=== PATIENT | male | born 1940 | race Caucasian/White ===

== ENCOUNTER 2016-12-29 08:58 | Emergency (ER) | payer OTHER ==
[2016-12-29 09:13] VITALS: BP 142/86; PULSE 65; TEMP 97.8; BMI 34.7
[2016-12-29] MEDS ORDERED: KETOROLAC TROMETHAMINE 30 MG/1 ML VIAL IM ONE (10:01)
[2016-12-29] MEDS ORDERED: diazePAM 2 MG TABLET PO ONE (10:01)
[2016-12-29] MEDS ORDERED: diazePAM 2 MG TABLET ONE (10:03)
[2016-12-29] MEDS ORDERED: KETOROLAC TROMETHAMINE 30 MG/1 ML VIAL ONE (10:03)
--- NOTE | 2016-12-29 10:03 | PDOC ---
History of Present Illness - General Chief Complaint: Back Pain Stated Complaint: LOWER BACK PAIN - History of Present Illness Initial Comments: 12/29/16 10:02 Chief Complaint: lower back pain History of Present Illness: 76-year-old male with history of CAD status post 3 stents, hypertension, hyperlipidemia presents to ED with back pain. Patient states that 3 days ago he was shoveling snow when he started feeling back pain. The back pain has worsened over the last 3 days and today he felt like he couldn 't even get dressed because his lower back pain was so bad. Patient denies any trauma or injury, bowel or bladder dysfunction, loss of sensation, numbness or tingling to lower extremities, any weakness, chest pain, shortness of breath, fever, or chills. PMH: no history of cancer Meds: Lipitor, metoprolol, Plavix Allergies: None PSH: no recent epidural placement or other surgery Soc hx: Denies alcohol, tobacco, drug use. Review of Systems: GENERAL/CONSTITUTIONAL: No fever or chills. No weakness. No weight change. HEAD, EYES, EARS, NOSE AND THROAT: No change in vision. No ear pain or discharge. No sore throat. CARDIOVASCULAR: No chest pain or shortness of breath. RESPIRATORY: No cough, wheezing, or hemoptysis. GASTROINTESTINAL: No nausea, vomiting, diarrhea or constipation. No rectal bleeding. GENITOURINARY: No dysuria, frequency, or change in urination. MUSCULOSKELETAL: No bladder or bowel dysfunction. No weakness, difficulty walking. No joint or muscle swelling or pain. No neck or back pain. SKIN AND BREASTS: No rash or easy bruising. NEUROLOGIC: No headache, vertigo, loss of consciousness, or loss of sensation. PSYCHIATRIC: No depression or anxiety. ENDOCRINE: No increased thirst. No abnormal weight change. HEMATOLOGIC/LYMPHATIC: No anemia, easy bleeding, or history of blood clots. ALLERGIC/IMMUNOLOGIC: No hives or skin allergy. No latex allergy. General Appearance: positive: Appropriately Dressed. negative: Apparent Distress, no intoxication HEENT: positive: EOMI, HERMELINDA, Normal ENT Inspection, Normal Voice, TMs Normal, Pharynx Normal. No Palor of Conjunctivae, Photophobia, Scleral Icterus (R), Scleral Icterus (L) Neck: positive: Trachea midline, Normal Thyroid, Supple. No tenderness, rigidity, Carotid bruit, Stridor, Lymphadenopathy (R), Lymphadenopathy (L), Thyromegaly] Respiratory/Chest: positive: Lungs Clear, Normal Breath Sounds. No Chest Tenderness, Respiratory Distress, Accessory Muscle Use, Labored Respiration, Crackles, Rales, Rhonchi, Stridor, Wheezing, Dullness Cardiovascular: Regular Rhythm, Regular Rate, S1, S2. No JVD, Murmur, Bradycardia, Tachycardia Vascular Pulses: Dorsalis-Pedis (R): 2+, Doralis-Pedis (L): 2+] Gastrointestinal/Abdominal: positive for Normal Bowel Sounds, Flat, Soft. No Tenderness, Organomegaly, Pulsatile Mass, Distention, Guarding, Rebound, Hernia , Hepatomegaly, Spleenomegaly] Lymphatic: negative: Adenopathy, Tenderness] Musculoskeletal: Full ROM in all extremities. Normal capillary refill, distal pulses equal bilaterally. Stable pelvis. No tenderness, swelling, erythema, or deformity. No midline point tenderness to cervical, thoracic, lumbar spine. Negative straight leg test. Integumentary: Normal color, dry, warm. No cyanosis, erythema, jaundice or rash Neurologic: A&Ox3, follow commands, respond appropriately CN2-12: conjugate gaze, pupil round, equal and reactive to light. Visual field full to confrontation. EOMI without nystagmus, pursuit is smooth without saccade. Facial sensation and muscle activation intact bilaterally. Hearing intact bilaterally. Palate elevate symmetrically. Shoulder shrug and neck turn full strength. Tongue protrude midline. Motor: UE and LE strength 5/5 throughout bilaterally. Muscle tone and bulk normal. Cerebellar: Rapid-alternating movement with regular rhythm without bradykinesia. [id number] and [id number] intact bilaterally without dysmetria or overshoot. Gait narrow based. No shuffling. Full hip flexion and knee flexion. Negative Romberg No involuntary movement noted. No pronator drift. No clonus. 12/29/16 10:09 12/29/16 13:26 Past History - Past Medical History Allergies/Adverse Reactions: Allergies Allergy/AdvReac Type Severity Reaction Status Date / Time No Known Allergies Allergy Verified 12/29/16 09:07 Home Medications: Ambulatory Orders Cyclobenzaprine HCl [Flexeril -] 5 mg PO HS #7 tablet 12/29/16 Naproxen 250 mg PO BID #10 tablet 12/29/16 Cardiac Disorders: Yes (STENT PLACEMENT) HTN: Yes Hypercholesterolemia: Yes - Surgical History Cardiac Surgery: Yes (STENTS) - Psycho/Social/Smoking Cessation Hx Suicidal Ideation: No Smoking History: Never smoked *Physical Exam - Vital Signs Last Vital Signs Temp Pulse Resp BP Pulse Ox 97.8 F 65 17 142/86 95 12/29/16 09:07 12/29/16 09:07 12/29/16 09:07 12/29/16 09:07 12/29/16 09:07 Medical Decision Making - Medical Decision Making 12/29/16 13:26 76-year-old male with history of CAD status post 3 stents, hypertension, hyperlipidemia presents to ED with back pain. -2 mg Valium -30 mg Toradol IM Patient states back pain is improved but he "still feels it." Discussed with patient that he may need an MRI for further evaluation of his sudden back pain. DDx includes cauda equina, sciatica, herniated disc, muscle strain/spasm. At this time it appears that this is a muscle spasm secondary to poor body mechanics from shoveling snow. -5 mg cyclobenzaprine po hs -250 mg naproxen bid x 7 days Advised patient to follow up with orthopedics within the next week. Advised patient to take medications as prescribed. Advised patient of signs and symptoms for return to ER; patient verbalized understanding and agrees to plan. *DC/Admit/Observation/Transfer Diagnosis at time of Disposition: Lower back pain Qualifiers: Chronicity: acute Back pain laterality: bilateral Sciatica presence: without sciatica Qualified Code(s): M54.5 - Low back pain - Discharge Dispostion Disposition: HOME Condition at time of disposition: Stable Admit: No - Prescriptions Prescriptions: Cyclobenzaprine HCl [Flexeril -] 5 mg PO HS #7 tablet Naproxen 250 mg PO BID #10 tablet - Referrals Referrals: Cora Garg MD [Primary Care Provider] - Alek Goldberg MD [Staff Physician] - - Patient Instructions Printed Discharge Instructions: DI for Back Strain or Sprain Additional Instructions: Please take medication as prescribed and follow-up with orthopedist next week. If he developed severe pain radiating down to his leg, weakness to one side, shortness of breath, chest pain, numbness or tingling to her legs, loss of bowel or bladder function, loss of sensation, or any other new or worsening symptoms please return to the ER.
== END 2016-12-29 10:47 | disposition home or self-care (01) ==
LOC: JERFT 08:58
PROC: 3E0233Z Introduction of Anti-inflammatory into Muscle, Percutaneous Approach (ICD-10-PCS; principal; 2016-12-29)
DX: I10 Essential (primary) hypertension (principal); E78.00 Pure hypercholesterolemia, unspecified; Z95.5 Presence of coronary angioplasty implant and graft
CPT/HCPCS: 96372; 99281-25

== ENCOUNTER 2021-12-09 12:17 | Inpatient (IN) | payer OTHER ==
[2021-12-09] MEDS ORDERED: DEXAMETHASONE SOD PHOSPHATE 10 MG/1 ML VIAL IVPUSH ONE (13:32)
[2021-12-09] MEDS ORDERED: SODIUM CHLORIDE 0.9% 500 ML INFUS.BAG IV ONE (13:41)
[2021-12-09] MEDS ORDERED: DEXAMETHASONE SOD PHOSPHATE 4 MG/1 ML VIAL ONE (13:42)
[2021-12-09] MEDS ORDERED: METOPROLOL TARTRATE 5 MG/5 ML VIAL IVPUSH ONE (13:49)
[2021-12-09] MEDS ORDERED: METOPROLOL TARTRATE 5 MG/5 ML VIAL ONE ×2 (13:56→18:33)
[2021-12-09] MEDS ORDERED: metoPROLOL SUCCINATE 25 MG TAB.SR.24H (FP) PO ONE (14:10)
[2021-12-09] MEDS ORDERED: metoPROLOL SUCCINATE 25 MG TAB.SR.24H (FP) ONE (14:16)
[2021-12-09 15:02] LABS: HEMATOCRIT 42.2 % (35.4-49); HEMOGLOBIN 15.5 GM/dL (11.7-16.9); MCH 33.3 pg (25.7-33.7); MCHC 36.6 g/dl (32.0-35.9); MEAN CELL VOLUME 90.9 fl (80-96); MEAN PLT VOLUME 8.9 fl (7.5-11.1); PLATELET COUNT 409 10^3/uL (134-434); RBC 4.64 M/mm3 (4.00-5.60); RDW 15.9 % (11.9-15.9); WHITE BLOOD COUNT 7.6 K/mm3 (4.0-10.0)
[2021-12-09 15:09] LABS: VENOUS BASE EXCESS -7.9 mmol/L (-2-2); VENOUS O2 SATURATION 62.7 % (70-80); VENOUS PCO2 33.9 mmHg (38-52); VENOUS PH 7.317 (7.310-7.410)
[2021-12-09 15:10] LABS: INR 1.48 (0.83-1.09); PROTHROMBIN TIME (PATIENT) 17.1 SEC (9.7-13.0)
[2021-12-09 15:30] LABS: CHLORIDE 105 mmol/L (98-107); SODIUM 138 mmol/L (136-145)
[2021-12-09 15:31] LABS: CALCIUM 8.8 mg/dL (8.5-10.1)
[2021-12-09 15:32] LABS: ALBUMIN 2.8 g/dl (3.4-5.0); ANION GAP 13 MMOL/L (8-16); BLOOD UREA NITROGEN 76.4 mg/dL (7-18); CO2 20 mmol/L (21-32); GLUCOSE,RANDOM 145 mg/dL (74-106); MAGNESIUM 3.3 mg/dL (1.8-2.4)
[2021-12-09 15:35] LABS: BILIRUBIN,DIRECT 1.8 mg/dL (0.0-0.2); CREATININE 2.1 mg/dL (0.55-1.3); SGOT/AST 75 U/L (15-37); SGPT/ALT 85 U/L (13-61)
[2021-12-09 15:36] LABS: LDH 458 U/L (87-246); TOT PROT 7.7 g/dl (6.4-8.2)
[2021-12-09 15:37] LABS: BILIRUBIN,TOTAL 2.7 mg/dL (0.2-1)
[2021-12-09 15:38] LABS: ALK PHOS 313 U/L (45-117)
[2021-12-09 15:41] LABS: ANISOCYTOSIS 0; HELMET CELLS 0; HOWELL-JOLLY BODIES 0; MACROCYTOSIS 0; OVALOCYTE 0; PLATELET ESTIMATE NORMAL; ROULEAU 0; SICKELED CELLS 0; TARGET CELLS 0; TEAR DROP CELLS 0; TOXIC GRANULATION 0
[2021-12-09 16:32] LABS: LACTIC ACID 2.7 mmol/L (0.4-2.0)
[2021-12-09] MEDS ORDERED: AZITHROMYCIN IVPB 500 MG in DEXTROSE 5%-WATER - 250 ML IVPB ONE (16:44)
[2021-12-09] MEDS ORDERED: CEFTRIAXONE 1,000 MG in DEXTROSE 5%-WATER - 50 ML IVPB ONE (16:44)
[2021-12-09] MEDS ORDERED: AZITHROMYCIN IVPB 500 MG/250 ML BAG IVPB ONE (17:05)
[2021-12-09] MEDS ORDERED: CEFTRIAXONE 1 GM/50 ML BAG ONE (17:05)
[2021-12-09] MEDS ORDERED: SODIUM CHLORIDE 1,000 ML IV SCH ×2 (18:00→18:43)
[2021-12-09] MEDS ORDERED: METOPROLOL TARTRATE 5 MG/5 ML VIAL IVPUSH PRN (18:02)
[2021-12-09] MEDS ORDERED: GABAPENTIN 100 MG CAPSULE ONE (21:04)
[2021-12-09] MEDS ORDERED: APIXABAN 2.5 MG TABLET ONE (21:04)
[2021-12-09] MEDS ORDERED: CYCLOBENZAPRINE HCL 10 MG TABLET (FP) ONE (21:04)
[2021-12-09] MEDS: CYCLOBENZAPRINE HCL 5 MG TABLET PO SCH (21:24)
[2021-12-09] MEDS: APIXABAN 2.5 MG TABLET PO SCH (21:25)
[2021-12-09] MEDS: GABAPENTIN 100 MG CAPSULE PO SCH (21:25)
[2021-12-09] MEDS ORDERED: APIXABAN 5 MG TABLET PO SCH (22:00)
[2021-12-09 22:07] LABS: LACTIC ACID 2.7 mmol/L (0.4-2.0)
[2021-12-10] MEDS ORDERED: GABAPENTIN 100 MG CAPSULE ONE ×3 (05:52→22:15)
[2021-12-10] MEDS: GABAPENTIN 100 MG CAPSULE PO SCH ×3 (06:06→22:34)
[2021-12-10 06:37] LABS: BASO % 0.5 % (0-2.0); HEMATOCRIT 40.2 % (35.4-49); HEMOGLOBIN 14.1 GM/dL (11.7-16.9); LYMPH % 7.9 % (8-40); MEAN CELL VOLUME 94.5 fl (80-96); MEAN PLT VOLUME 8.6 fl (7.5-11.1); MONO % 4.7 % (3.8-10.2); NEUT % 86.9 % (42.8-82.8); PLATELET COUNT 410 10^3/uL (134-434); RBC 4.25 M/mm3 (4.00-5.60); RDW 15.9 % (11.9-15.9); WHITE BLOOD COUNT 5.9 K/mm3 (4.0-10.0)
[2021-12-10 06:51] LABS: MAGNESIUM 3.7 mg/dL (1.8-2.4)
[2021-12-10 06:53] LABS: ALBUMIN 2.5 g/dl (3.4-5.0); BLOOD UREA NITROGEN 72.1 mg/dL (7-18)
[2021-12-10 06:54] LABS: CREATININE 1.7 mg/dL (0.55-1.3)
[2021-12-10 06:56] LABS: TOT PROT 7.1 g/dl (6.4-8.2)
[2021-12-10 06:58] LABS: BILIRUBIN,TOTAL 1.7 mg/dL (0.2-1)
[2021-12-10] MEDS ORDERED: APIXABAN 2.5 MG TABLET ONE ×2 (08:22→22:14)
[2021-12-10] MEDS: APIXABAN 2.5 MG TABLET PO SCH ×2 (09:38→22:33)
[2021-12-10] MEDS ORDERED: SODIUM ZIRCONIUM CYCLOSILICATE (LOKELMA) 5 GM PACKET PO ONE (09:54)
[2021-12-10] MEDS ORDERED: SODIUM ZIRCONIUM CYCLOSILICATE (LOKELMA) 5 GM PACKET ONE (10:09)
[2021-12-10 12:04] LABS: LACTIC ACID 2.2 mmol/L (0.4-2.0)
[2021-12-10] MEDS ORDERED: FUROSEMIDE 40 MG/4 ML INJECTABLE VIAL IVPUSH ONE (14:42)
[2021-12-10] MEDS ORDERED: SODIUM CHLORIDE 0.45% 1,000 ML IV SCH (14:45)
[2021-12-10] MEDS ORDERED: FUROSEMIDE 40 MG/4 ML INJECTABLE VIAL ONE (15:19)
[2021-12-10] MEDS ORDERED: CEFTRIAXONE 1 GM/50 ML BAG ONE (19:39)
[2021-12-10] MEDS: CEFTRIAXONE 1 GM in DEXTROSE 5%-WATER - 50 ML IVPB SCH (19:45)
[2021-12-10] MEDS ORDERED: DOXYCYCLINE HYCLATE 100 MG VIAL ONE (22:15)
[2021-12-10] MEDS: CYCLOBENZAPRINE HCL 5 MG TABLET PO SCH (22:33)
[2021-12-10] MEDS: ROSUVASTATIN CA 10 MG TABLET PO SCH (22:33)
[2021-12-10] MEDS: DOXYCYCLINE INJECTION 100 MG in DEXTROSE 5%-WATER 100 ML IVPB SCH (22:34)
[2021-12-11 04:57] VITALS: BMI 29.5
[2021-12-11] MEDS: GABAPENTIN 100 MG CAPSULE PO SCH ×3 (06:52→22:01)
[2021-12-11 10:08] LABS: HEMATOCRIT 39.9 % (35.4-49); HEMOGLOBIN 13.7 GM/dL (11.7-16.9); MCH 30.5 pg (25.7-33.7); MCHC 34.2 g/dl (32.0-35.9); MEAN CELL VOLUME 89.2 fl (80-96); MEAN PLT VOLUME 8.6 fl (7.5-11.1); PLATELET COUNT 522 10^3/uL (134-434); RBC 4.47 M/mm3 (4.00-5.60); RDW 15.8 % (11.9-15.9); WHITE BLOOD COUNT 9.1 K/mm3 (4.0-10.0)
[2021-12-11] MEDS ORDERED: DOXYCYCLINE HYCLATE 100 MG VIAL ONE ×2 (10:25→21:26)
[2021-12-11] MEDS ORDERED: DEXTROSE 5%-WATER 100 ML IVPB ONE ×2 (10:25→21:26)
[2021-12-11] MEDS ORDERED: cefTRIAXone SODIUM 1 GM VIAL ONE (10:26)
[2021-12-11] MEDS ORDERED: DEXTROSE 5%-WATER - 50 ML IVPB ONE (10:26)
[2021-12-11 10:30] LABS: ALBUMIN 2.4 g/dl (3.4-5.0); BLOOD UREA NITROGEN 73.7 mg/dL (7-18); CALCIUM 8.9 mg/dL (8.5-10.1); MAGNESIUM 2.3 mg/dL (1.8-2.4)
[2021-12-11 10:31] LABS: CREATININE 1.6 mg/dL (0.55-1.3)
[2021-12-11 10:33] LABS: BILIRUBIN,TOTAL 1.3 mg/dL (0.2-1); PHOSPHOROUS 4.4 mg/dL (2.5-4.9); TOT PROT 6.5 g/dl (6.4-8.2)
[2021-12-11] MEDS: DOXYCYCLINE INJECTION 100 MG in DEXTROSE 5%-WATER 100 ML IVPB SCH ×2 (10:40→22:00)
[2021-12-11] MEDS: APIXABAN 2.5 MG TABLET PO SCH ×2 (10:41→22:01)
[2021-12-11] MEDS: CEFTRIAXONE 1 GM in DEXTROSE 5%-WATER - 50 ML IVPB SCH (10:41)
[2021-12-11 11:19] LABS: ANISOCYTOSIS 1+; MACROCYTOSIS 0; PLATELET ESTIMATE INCREASED
[2021-12-11] MEDS: DEXAMETHASONE SOD PHOSPHATE 10 MG/1 ML VIAL IVPUSH SCH (20:11)
[2021-12-11] MEDS: POLYETHYLENE GLYCOL (HEALTHYLAX) 3350 17 GM PACKET PO SCH (22:00)
[2021-12-11] MEDS: CYCLOBENZAPRINE HCL 5 MG TABLET PO SCH (22:01)
[2021-12-11] MEDS: ROSUVASTATIN CA 10 MG TABLET PO SCH (22:01)
[2021-12-11] MEDS: SENNOSIDES 8.6MG TABLET (FP) PO SCH (22:01)
[2021-12-12] MEDS: GABAPENTIN 100 MG CAPSULE PO SCH ×3 (05:55→21:00)
[2021-12-12] MEDS ORDERED: DEXTROSE 5%-WATER 100 ML IVPB ONE ×2 (09:19→20:49)
[2021-12-12] MEDS ORDERED: DOXYCYCLINE HYCLATE 100 MG VIAL ONE ×2 (09:19→20:48)
[2021-12-12] MEDS ORDERED: cefTRIAXone SODIUM 1 GM VIAL ONE (09:20)
[2021-12-12] MEDS ORDERED: DEXTROSE 5%-WATER - 50 ML IVPB ONE (09:20)
[2021-12-12 10:08] LABS: HEMATOCRIT 44.7 % (35.4-49); HEMOGLOBIN 15.1 GM/dL (11.7-16.9); MCH 30.6 pg (25.7-33.7); MCHC 33.7 g/dl (32.0-35.9); MEAN CELL VOLUME 90.6 fl (80-96); MEAN PLT VOLUME 8.6 fl (7.5-11.1); PLATELET COUNT 531 10^3/uL (134-434); RBC 4.94 M/mm3 (4.00-5.60); RDW 16.1 % (11.9-15.9); WHITE BLOOD COUNT 9.9 K/mm3 (4.0-10.0)
[2021-12-12] MEDS: DOXYCYCLINE INJECTION 100 MG in DEXTROSE 5%-WATER 100 ML IVPB SCH ×2 (10:15→21:01)
[2021-12-12] MEDS: CEFTRIAXONE 1 GM in DEXTROSE 5%-WATER - 50 ML IVPB SCH (10:15)
[2021-12-12] MEDS: DEXAMETHASONE SOD PHOSPHATE 10 MG/1 ML VIAL IVPUSH SCH (10:15)
[2021-12-12] MEDS: APIXABAN 2.5 MG TABLET PO SCH ×2 (10:16→21:00)
[2021-12-12] MEDS: POLYETHYLENE GLYCOL (HEALTHYLAX) 3350 17 GM PACKET PO SCH (10:16)
[2021-12-12] MEDS: SENNOSIDES 8.6MG TABLET (FP) PO SCH ×2 (10:16→21:00)
[2021-12-12 10:50] LABS: ALBUMIN 2.5 g/dl (3.4-5.0); CALCIUM 9.3 mg/dL (8.5-10.1)
[2021-12-12 10:53] LABS: CREATININE 1.3 mg/dL (0.55-1.3)
[2021-12-12 10:55] LABS: BILIRUBIN,TOTAL 1.4 mg/dL (0.2-1)
[2021-12-12 11:56] LABS: ANISOCYTOSIS 0; MACROCYTOSIS 0; PLATELET ESTIMATE INCREASED
[2021-12-12] MEDS: CYCLOBENZAPRINE HCL 5 MG TABLET PO SCH (21:00)
[2021-12-12] MEDS: ROSUVASTATIN CA 10 MG TABLET PO SCH (21:00)
[2021-12-13] MEDS: GABAPENTIN 100 MG CAPSULE PO SCH ×3 (05:38→21:16)
[2021-12-13 08:11] LABS: ALBUMIN 2.3 g/dl (3.4-5.0); BLOOD UREA NITROGEN 35.9 mg/dL (7-18); CALCIUM 9.1 mg/dL (8.5-10.1); MAGNESIUM 2.6 mg/dL (1.8-2.4)
[2021-12-13 08:15] LABS: CREATININE 1.1 mg/dL (0.55-1.3); PHOSPHOROUS 3.7 mg/dL (2.5-4.9)
[2021-12-13 08:17] LABS: BILIRUBIN,TOTAL 1.4 mg/dL (0.2-1); TOT PROT 6.6 g/dl (6.4-8.2)
[2021-12-13] MEDS ORDERED: DEXTROSE 5%-WATER 100 ML IVPB ONE ×2 (10:53→21:04)
[2021-12-13] MEDS ORDERED: DOXYCYCLINE HYCLATE 100 MG VIAL ONE ×2 (10:53→21:04)
[2021-12-13] MEDS ORDERED: cefTRIAXone SODIUM 1 GM VIAL ONE (10:54)
[2021-12-13] MEDS ORDERED: DEXTROSE 5%-WATER - 50 ML IVPB ONE (10:54)
[2021-12-13] MEDS: SENNOSIDES 8.6MG TABLET (FP) PO SCH ×2 (11:08→21:16)
[2021-12-13] MEDS: CEFTRIAXONE 1 GM in DEXTROSE 5%-WATER - 50 ML IVPB SCH (11:08)
[2021-12-13] MEDS: POLYETHYLENE GLYCOL (HEALTHYLAX) 3350 17 GM PACKET PO SCH (11:08)
[2021-12-13] MEDS: APIXABAN 2.5 MG TABLET PO SCH ×2 (11:08→21:16)
[2021-12-13] MEDS: DEXAMETHASONE SOD PHOSPHATE 10 MG/1 ML VIAL IVPUSH SCH (11:08)
[2021-12-13] MEDS: DOXYCYCLINE INJECTION 100 MG in DEXTROSE 5%-WATER 100 ML IVPB SCH ×2 (11:09→21:16)
[2021-12-13] MEDS ORDERED: SODIUM ZIRCONIUM CYCLOSILICATE (LOKELMA) 5 GM PACKET PO ONE (12:00)
[2021-12-13] MEDS: CYCLOBENZAPRINE HCL 5 MG TABLET PO SCH (21:16)
[2021-12-13] MEDS: ROSUVASTATIN CA 10 MG TABLET PO SCH (21:16)
[2021-12-14] MEDS: GABAPENTIN 100 MG CAPSULE PO SCH ×3 (05:37→21:03)
[2021-12-14] MEDS ORDERED: DEXTROSE 5%-WATER - 50 ML IVPB ONE (08:27)
[2021-12-14] MEDS ORDERED: cefTRIAXone SODIUM 1 GM VIAL ONE (08:27)
[2021-12-14 08:41] LABS: HEMATOCRIT 42.5 % (35.4-49); HEMOGLOBIN 14.1 GM/dL (11.7-16.9); MCH 29.6 pg (25.7-33.7); MCHC 33.1 g/dl (32.0-35.9); MEAN CELL VOLUME 89.6 fl (80-96); MEAN PLT VOLUME 8.2 fl (7.5-11.1); PLATELET COUNT 509 10^3/uL (134-434); RBC 4.74 M/mm3 (4.00-5.60); WHITE BLOOD COUNT 14.2 K/mm3 (4.0-10.0)
[2021-12-14] MEDS ORDERED: DOXYCYCLINE HYCLATE 100 MG VIAL ONE ×2 (08:41→20:45)
[2021-12-14] MEDS ORDERED: DEXTROSE 5%-WATER 100 ML IVPB ONE ×2 (08:41→20:45)
[2021-12-14 09:17] LABS: ALBUMIN 2.2 g/dl (3.4-5.0); CALCIUM 8.8 mg/dL (8.5-10.1)
[2021-12-14 09:19] LABS: BLOOD UREA NITROGEN 33.1 mg/dL (7-18); MAGNESIUM 2.5 mg/dL (1.8-2.4); PHOSPHOROUS 3.8 mg/dL (2.5-4.9)
[2021-12-14 09:20] LABS: BILIRUBIN,TOTAL 1.1 mg/dL (0.2-1); TOT PROT 6.3 g/dl (6.4-8.2)
[2021-12-14] MEDS: SENNOSIDES 8.6MG TABLET (FP) PO SCH ×2 (09:33→21:03)
[2021-12-14] MEDS: DOXYCYCLINE INJECTION 100 MG in DEXTROSE 5%-WATER 100 ML IVPB SCH ×2 (09:33→21:03)
[2021-12-14] MEDS: APIXABAN 2.5 MG TABLET PO SCH (09:33)
[2021-12-14] MEDS: DEXAMETHASONE SOD PHOSPHATE 10 MG/1 ML VIAL IVPUSH SCH (09:34)
[2021-12-14] MEDS: POLYETHYLENE GLYCOL (HEALTHYLAX) 3350 17 GM PACKET PO SCH (09:34)
[2021-12-14] MEDS: CEFTRIAXONE 1 GM in DEXTROSE 5%-WATER - 50 ML IVPB SCH (09:35)
[2021-12-14 09:56] LABS: ANISOCYTOSIS 0; HELMET CELLS 0; HOWELL-JOLLY BODIES 0; MACROCYTOSIS 0; OVALOCYTE 0; PLATELET ESTIMATE INCREASED; ROULEAU 0; SICKELED CELLS 0; TARGET CELLS 0; TEAR DROP CELLS 0; TOXIC GRANULATION 0
[2021-12-14] MEDS: APIXABAN 5 MG TABLET PO SCH (21:03)
[2021-12-14] MEDS: ROSUVASTATIN CA 10 MG TABLET PO SCH (21:03)
[2021-12-14] MEDS: CYCLOBENZAPRINE HCL 5 MG TABLET PO SCH (21:05)
[2021-12-15] MEDS: GABAPENTIN 100 MG CAPSULE PO SCH ×2 (05:41→13:36)
[2021-12-15 06:46] LABS: HEMATOCRIT 42.4 % (35.4-49); HEMOGLOBIN 14.3 GM/dL (11.7-16.9); MCH 30.7 pg (25.7-33.7); MCHC 33.8 g/dl (32.0-35.9); MEAN CELL VOLUME 90.8 fl (80-96); MEAN PLT VOLUME 8.2 fl (7.5-11.1); PLATELET COUNT 489 10^3/uL (134-434); RBC 4.67 M/mm3 (4.00-5.60); RDW 16.4 % (11.9-15.9); WHITE BLOOD COUNT 9.3 K/mm3 (4.0-10.0)
[2021-12-15 07:24] LABS: ALBUMIN 2.2 g/dl (3.4-5.0); BLOOD UREA NITROGEN 37.2 mg/dL (7-18); CALCIUM 8.8 mg/dL (8.5-10.1); MAGNESIUM 2.2 mg/dL (1.8-2.4)
[2021-12-15 07:28] LABS: BILIRUBIN,TOTAL 1.2 mg/dL (0.2-1); CREATININE 1.2 mg/dL (0.55-1.3); PHOSPHOROUS 3.8 mg/dL (2.5-4.9)
[2021-12-15] MEDS ORDERED: SODIUM ZIRCONIUM CYCLOSILICATE (LOKELMA) 5 GM PACKET PO ONE ×2 (08:15→14:00)
[2021-12-15] MEDS ORDERED: DOXYCYCLINE HYCLATE 100 MG VIAL ONE (08:43)
[2021-12-15] MEDS ORDERED: DEXTROSE 5%-WATER 100 ML IVPB ONE (08:44)
[2021-12-15] MEDS ORDERED: cefTRIAXone SODIUM 1 GM VIAL ONE (08:44)
[2021-12-15] MEDS ORDERED: DEXTROSE 5%-WATER - 50 ML IVPB ONE (08:44)
[2021-12-15 08:54] LABS: ANISOCYTOSIS 0; HELMET CELLS 0; HOWELL-JOLLY BODIES 0; MACROCYTOSIS 0; OVALOCYTE 0; PLATELET ESTIMATE NORMAL; ROULEAU 0; SICKELED CELLS 0; TARGET CELLS 0; TEAR DROP CELLS 0; TOXIC GRANULATION 0
[2021-12-15] MEDS: DEXAMETHASONE SOD PHOSPHATE 10 MG/1 ML VIAL IVPUSH SCH (09:36)
[2021-12-15] MEDS: POLYETHYLENE GLYCOL (HEALTHYLAX) 3350 17 GM PACKET PO SCH (09:36)
[2021-12-15] MEDS: APIXABAN 5 MG TABLET PO SCH (09:37)
[2021-12-15] MEDS: DOXYCYCLINE INJECTION 100 MG in DEXTROSE 5%-WATER 100 ML IVPB SCH (09:37)
[2021-12-15] MEDS: SENNOSIDES 8.6MG TABLET (FP) PO SCH (09:37)
[2021-12-15] MEDS: CEFTRIAXONE 1 GM in DEXTROSE 5%-WATER - 50 ML IVPB SCH (09:38)
[2021-12-15 13:29] VITALS: BP 126/66; PULSE 92; TEMP 97.2
== END 2021-12-15 18:38 | DRG 177 ==
LOC: JER 12:17 → JERBED 16:15 → J4S 12-11 02:51
PROVIDERS: ADMIT Internal Medicine; ATTEND Internal Medicine
DX: U07.1 COVID-19 (principal); J96.01 Acute respiratory failure with hypoxia; J12.82 Pneumonia due to coronavirus disease 2019; I48.19 Other persistent atrial fibrillation; N17.9 Acute kidney failure, unspecified; I13.0 Hypertensive heart and chronic kidney disease with heart failure and stage 1 through stage 4 chronic kidney disease, or unspecified chronic kidney disease; E87.2 Acidosis; I50.30 Unspecified diastolic (congestive) heart failure; I27.20 Pulmonary hypertension, unspecified; E87.5 Hyperkalemia; N18.30 Chronic kidney disease, stage 3 unspecified; I25.119 Atherosclerotic heart disease of native coronary artery with unspecified angina pectoris; Z98.61 Coronary angioplasty status; E78.5 Hyperlipidemia, unspecified; R74.01 Elevation of levels of liver transaminase levels; D72.829 Elevated white blood cell count, unspecified
CPT/HCPCS: 36415; 71045-TC-FY; 74181-TC; 76700-TC; 80053; 80061; 82248; 82728; 82803; 83036; 83605; 83615; 83735; 83880; 84100; 84484; 85025; 85379; 85610; 85730; 86140; 86705; 86709; 86803; 87040; 87086; 87340; 87517; 87804; 93005; 93010; 94761; 97116-GP; 97162-GP; 99285-25; C9803; J1100; U0003; U0005